=== PATIENT | female | born 1985 | race African-American/Black ===

== ENCOUNTER 2017-08-21 09:30 | Emergency (ER) | payer SELFPAY ==
[~2017-08-21] VITALS: Ht 157.5 cm; Wt 66.0 kg
[2017-08-21 09:31] VITALS: BP 123/72; PULSE 108; RESP 14; TEMP 98.5; O2SAT 100
--- NOTE | 2017-08-21 10:53 | RADRPT ---
EXAM DATE/TIME: 08/21/2017 10:18 [place] COMPARISON: No previous studies available for comparison. INDICATIONS : Left knee pain, over excessive walking MEDICAL HISTORY : None. SURGICAL HISTORY : None. ENCOUNTER: Initial ACUITY: 3 days PAIN SCORE: 7/10 LOCATION: Left knee FINDINGS: Four view examination of the left knee demonstrates no evidence of fracture or dislocation. Bony min eralization is normal. The articular surfaces are intact. The suprapatellar soft tissues have a nor mal configuration. CONCLUSION: Normal examination for a patient of this age. Johnathan Chávez MD FACR on August 21, 2017 at 10:49 Board Certified Radiologist. This report was verified electronically.
[2017-08-21] MEDS ORDERED: IBUP1TAB7 PO ×2 (11:47→11:48)
--- NOTE | 2017-08-21 11:48 | PD ---
HPI Chief Complaint: Pain: Acute or Chronic Time Seen by Provider: 11:45 Travel History International Travel<30 days: No Contact w/Intl Traveler<30days: No Traveled to known affect area: No History of Present Illness HPI 32-year-old female presents to emergency Department with complaint of left knee pain 3 days. Denies injury. Denies swelling, erythema. Has not taken any medication to alleviate her symptoms. Tried icing her knee for symptom management. Pain is to the medial aspect. Aggravated with ambulation and flexion. Rates pain 7/10 with activity. Denies pain at rest. Denies fever, vomiting. Denies paresthesias, loss of sensation, decreased range motion, decreased strength to the affected extremity. Has been ambulatory in the affected extremity. No primary care provider. No known allergies. Denies significant past medical history has no other medical complaints. No other modifying factors or associated signs and symptoms. PFSH Social History Tobacco Use: No Allergies-Medications (Allergen,Severity, Reaction): Coded Allergies: No Known Allergies (Unverified , 08/21/17) Reported Meds & Prescriptions Reported Meds & Active Scripts Active Ibuprofen 800 Mg Tab 800 Mg PO Q6HR PRN Review of Systems Except as stated in HPI: all other systems reviewed are Neg Physical Exam Narrative GENERAL: Well-nourished, well-developed female patient, in no acute distress; afebrile, nontoxic-appearing SKIN: Warm and dry. HEAD: Atraumatic. Normocephalic. EYES: Pupils equal and round. No scleral icterus. No injection or drainage. ENT: Mucosa pink and moist. Airway patent. NECK: Trachea midline. CARDIOVASCULAR: Regular rate. RESPIRATORY: No accessory muscle use. GASTROINTESTINAL: Flat. MUSCULOSKELETAL: Left knee nonedematous, nonerythematous, and without ecchymosis ; full range of motion and flexion to 90; point tenderness to the medial aspect ; joint stable with negative drawer test; no obvious deformity. Left Lower extremity is supple and non-tense with 2+ pedal pulse and sensory intact and without erythema or edema. Ambulatory in room with a limp to the left lower extremity. No edema. No cyanosis. No obvious deformities. NEUROLOGICAL: Awake and alert. Oriented 3. No obvious cranial nerve deficits. Motor grossly within normal limits. Normal speech. PSYCHIATRIC: Appropriate mood and affect; insight and judgment normal. Data Data Last Documented VS Vital Signs Date Time Temp Pulse Resp B/P (MAP) Pulse Ox O2 Delivery O2 Flow Rate FiO2 08/21/17 09:31 98.5 108 14 123/72 (89) 100 Orders Orders Knee, Complete (4vws) (08/21/17 ) Ibuprofen (Motrin) (08/21/17 12:00) Crutches (08/21/17 11:53) Splint Or Brace Apply/Monitor (08/21/17 11:53) Ed Discharge Order (08/21/17 11:53) MDM Medical Decision Making Medical Screen Exam Complete: Yes Emergency Medical Condition: Yes Medical Record Reviewed: Yes Differential Diagnosis Knee strain, meniscal tear, knee pain Narrative Course 32-year-old female with left knee pain. Left knee x-ray ordered in triage. 1200: Left knee x-ray concludes: Knee X-Ray 08/21/17 0000 Signed Impressions: Service Date/Time: Monday, August 21, 2017 10:18 - CONCLUSION: Normal examination for a patient of this age. Johnathan Chávez MD FACR Discussed x-ray findings the patient. Instructed patient to follow palpation in 7-10 days if symptoms persist. Mejia bandage and crutches provided for support ibuprofen administered in the ER prior to discharge. Ibuprofen prescribed for home. Instructed patient to follow up with primary care provider. Patient verbalizes understanding and agreement with treatment plan. Patient is medically cleared and stable for discharge. Discussed reasons to return to the emergency department. Patient agrees with treatment plan. The patients vital signs are stable and the patient is stable for outpatient follow- up and treatment. Patient discharged home, stable and in no acute distress. Diagnosis Primary Impression: Left knee pain Qualified Codes: M25.562 - Pain in left knee Referrals: Orthopaedic Surgeon Primary Care Physician Patient Instructions: General Instructions, Knee Pain (ED) Additional Instructions: Tylenol or ibuprofen as needed and as directed to reduce pain and inflammation Rest, ice, compress, and elevate extremity to decrease pain and inflammation Knee brace for support Crutches for support Avoid aggravating activity; increase activity as tolerated Follow-up with primary care provider Follow-up with orthopedics Return to the emergency department immediately with worsening symptoms Med/Other Pt SpecificInfo: Prescription(s) given Scripts Ibuprofen (Ibuprofen) 800 Mg Tab 800 MG PO Q6HR Y for PAIN, #30 TAB 0 Refills Prov: Danii Camp 08/21/17 Disposition: 01 DISCHARGE HOME Condition: Stable Danii Camp Aug 21, 2017 11:48
[2017-08-21] MEDS ORDERED: IBUPROFEN 800 MG TAB PO ONE (12:00)
== END 2017-08-21 12:42 | disposition home or self-care (01) ==
LOC: NEPD 09:30
DX: M25.562 Pain in left knee (principal)
CPT/HCPCS: 73564; 99283; E0113